=== PATIENT | female | born 1975 | race Caucasian/White ===

== ENCOUNTER 2018-01-10 21:43 | Emergency (ER) | payer OTHER ==
[~2018-01-10] VITALS: Ht 162.6 cm; Wt 145.0 kg
[2018-01-10 22:30] VITALS: BP 152/95
== END 2018-01-10 22:31 | disposition home or self-care (01) ==
LOC: ER 21:44
DX: T23.172A Burn of first degree of left wrist, initial encounter (principal); Z88.1 Allergy status to other antibiotic agents; Z88.8 Allergy status to other drugs, medicaments and biological substances; X10.2XXA Contact with fats and cooking oils, initial encounter; Y93.G3 Activity, cooking and baking; Y92.89 Other specified places as the place of occurrence of the external cause; Y99.8 Other external cause status
CPT/HCPCS: 99281; A6255; A6449

== ENCOUNTER 2020-02-14 14:12 | Day surgery (SDC) | payer MEDICAID ==
--- NOTE | 2020-02-12 11:35 | NUR ---
VERBAL COVID SCREEN NEG
[2020-02-12 11:39] LABS: BASOPHILS # (AUTO) 0.1 X10'3 (0-0.2); BASOPHILS % (AUTO) 0.7 % (0-1); EOSINOPHILS # (AUTO) 0.1 X10'3 (0-0.9); EOSINOPHILS % (AUTO) 0.9 % (0-6); LYMPHOCYTES # (AUTO) 1.7 X10'3 (1.1-4.8); LYMPHOCYTES % (AUTO) 20.7 % (21-51); MEAN CORPUSCULAR HEMOGLOBIN 29.6 PG (27.0-31.0); MEAN CORPUSCULAR HGB CONC 33.1 g/dL (33.0-36.5); MEAN CORPUSCULAR VOLUME 89.6 FL (78-98); MEAN PLATELET VOLUME 8.3 FL (7.4-10.4); MONOCYTES # (AUTO) 0.7 X10'3 (0-0.9); MONOCYTES % (AUTO) 8.4 % (2-12); NEUTROPHILS # (AUTO) 5.8 X10'3 (1.8-7.7); NEUTROPHILS % (AUTO) 69.3 % (42-75); PRE OP HEMATOCRIT 39.1 % (35.0-45.0); PRE OP HEMOGLOBIN 12.9 g/dL (12.0-16.0); PRE OP PLATELET COUNT 245 X10'3 (140-440); RED BLOOD COUNT 4.36 X10'6 (4.20-5.60); RED CELL DISTRIBUTION WIDTH 14.9 % (11.5-14.5)
[2020-02-12 12:05] LABS: ALBUMIN 3.4 G/DL (3.4-5.0); ALBUMIN/GLOBULIN RATIO 0.9 (1.1-1.5); ALKALINE PHOSPHATASE 65 IU/L (46-116); BLOOD UREA NITROGEN 10 MG/DL (7-18); BUN/CREATININE RATIO 11.5 (6.6-38.0); CALCIUM 9.1 MG/DL (8.5-10.1); CHLORIDE 104 MMOL/L (99-107); CREATININE 0.87 MG/DL (0.40-0.90); PRE OP ALT 15 U/L (30-65); PRE OP ANION GAP 5 (8-16); PRE OP AST 9 U/L (10-37); PRE OP BILIRUB, TOTAL 0.3 MG/DL (0.0-1.0); PRE OP GLUCOSE 89 MG/DL (70-104); PRE OP SODIUM 140 MMOL/L (135-145); TOTAL CARBON DIOXIDE 31.2 MMOL/L (24-32); eGFR 71 ML/MIN
[~2020-02-14] VITALS: Ht 162.6 cm; Wt 130.2 kg
[2020-02-14] VITALS (7 sets, daily range): BP systolic 122–155; BP diastolic 54–86
[~2020-02-14 14:12] MED LIST: CHOL500050 PO; INDOCYANINE GREEN 25 MG/10 ML VIAL IV ONE; LEVO100T9 PO; TRAM50TA2 PO; ceFAZolin inj. 3,000 MG in normal saline 100ml IV soln 100 ML IV ONE; famotidine 10mg tablet PO ONE; ringers solution, lacted 1,000 ML IV SCH
[2020-02-14] MEDS ORDERED: BUPIVAcaine/PF 2.5 mg/ml (0.25%) 30ml vial ONE (15:11)
[2020-02-14] MEDS ORDERED: LIDOcaine 1% 30ml preserv. free vial ONE (15:11)
[2020-02-14] MEDS ORDERED: morphine 4 MG/ML inj SYRINge IV PRN (15:20)
[2020-02-14] MEDS ORDERED: meperidine/PF 25mg/ml syringe IV PRN ×3 (15:20)
[2020-02-14] MEDS ORDERED: ringers solution, lacted 1,000 ML IV SCH (15:20)
[2020-02-14] MEDS ORDERED: proCHLORperazine 10 MG/2 ml inj IV PRN (15:20)
[2020-02-14] MEDS ORDERED: ondansetron/PF 4mg/2ml inj IV PRN (15:20)
[2020-02-14] MEDS ORDERED: morphine 2 MG/ML inj. syringe IV PRN (15:20)
[2020-02-14] MEDS ORDERED: midazolam 2 mg/2 ml injection ONE (15:24)
[2020-02-14] MEDS ORDERED: fentaNYL/PF 50MCG/1 ML 2ML syringe ONE (15:24)
[2020-02-14] MEDS ORDERED: rocuronium 10mg/ml inj IV ONE (15:25)
[2020-02-14] MEDS ORDERED: propofol inj 20 ML IV ONE (15:25)
[2020-02-14] MEDS ORDERED: sevoflurane 250ml liquid IH ONE (15:31)
[2020-02-14] MEDS ORDERED: ondansetron/PF 4mg/2ml inj ONE (16:22)
[2020-02-14] MEDS ORDERED: dexamethasone sod phosphate 4mg/ml inj. ONE (16:22)
[2020-02-14] MEDS ORDERED: glycopyrrolate 0.2mg/ml inj ONE (16:44)
[2020-02-14] MEDS ORDERED: neostigmine methylsulfate 1 MG/ML 10ml vial ONE (16:45)
--- NOTE | 2020-02-14 17:11 | NUR ---
Received from OR via [facility] , accompanied by Anesthesiologist BUCKY and report given by Anesthesiolgist. PATIENT WITH 20G PIV IN LEFT UE AND 22G PIV IN RIGHT UE. VSS. 10L MASK ON WITH 100% SATURATIONS. 4ABDOMINAL BANDAIDS PRESNT THAT ARE ALL CDI AT THIS TIME. WILL MEDICATE FOR PAIN. Addendum: 02/14/20 at 1716 by Hernán Celis RN, RN Amended: Links added.
[2020-02-14] MEDS ORDERED: oxyCODONE/APAP 5-325mg tablet PO PRN ×2 (17:25)
--- NOTE | 2020-02-14 18:06 | NUR ---
PATIENT AND FAMILY AND THEY HAVE VERBALIZED UNDERSTANDING, OPPORTUNITY TO ASK QUESTIONS GIVEN AND PATIENT COMFORTABLE WITH DC. IV TAKEN OUT WITHOUT COMPLICATION. PATIENT HAS MET ALL DC CRITERIA FOR DC HOME. I HAVE REVIEWED D/C INSTRUCTIONS WITH OUT VIA WHEELCHAIR WHERE PATIENT WAS TAKEN HOME WITH ALL BELONGINGS. FAMILY GAVE PATIENT TRANSPORT HOME. Addendum: 02/14/20 at 1833 by Hernán Celis RN, RN Amended: Links added.
== END 2020-02-14 18:06 | disposition home or self-care (01) ==
LOC: PAS 14:12
PROVIDERS: ATTEND Surgery
DX: K80.20 Calculus of gallbladder without cholecystitis without obstruction (principal); G43.909 Migraine, unspecified, not intractable, without status migrainosus; E03.9 Hypothyroidism, unspecified; E66.01 Morbid (severe) obesity due to excess calories; Z68.42 Body mass index [BMI] 45.0-49.9, adult; Z98.51 Tubal ligation status; Z98.890 Other specified postprocedural states; Z87.891 Personal history of nicotine dependence; Z88.1 Allergy status to other antibiotic agents; Z88.8 Allergy status to other drugs, medicaments and biological substances; Z79.899 Other long term (current) drug therapy; Z83.3 Family history of diabetes mellitus; Z82.49 Family history of ischemic heart disease and other diseases of the circulatory system; Z82.3 Family history of stroke
CPT/HCPCS: 36415; 47563; 80053; 82948; 85025; 93005; J0690; J0780; J1100; J2001; J2175; J2250; J2270; J2405; J2704; J2710; J3010; J3490; J7120; A4215; A4618